=== PATIENT | female | born 1990 | race Caucasian/White ===

== ENCOUNTER 2024-01-09 12:55 | Inpatient (IN) | payer OTHER ==
[~2024-01-09] VITALS: Ht 157.5 cm; Wt 77.6 kg
[2024-01-09] MEDS ORDERED: MAGNESIUM SULFATE IN WATER 500 ML IV SCH (13:15)
[2024-01-09 13:20] VITALS: BP 110/73
[2024-01-09] MEDS ORDERED: PRENATAL TABLE1 EAC1 PO (13:43)
[2024-01-09] MEDS ORDERED: PROMETRIUM200 MG VAG (13:44)
[2024-01-09] MEDS ORDERED: CHILDREN'S ASPI81 MG PO (13:44)
[2024-01-09] MEDS ORDERED: TYLENOL325 MG PO (13:46)
[2024-01-09] MEDS ORDERED: RINGERS SOLUTION,LACTATED 1,000 ML IV SCH (14:00)
[2024-01-09] MEDS ORDERED: MAGNESIUM SULFATE IN WATER 100 ML IV NR (14:00)
[2024-01-09 14:14] LABS: HEMATOCRIT 34.7 % (36.0-45.00); HEMOGLOBIN 11.8 g/dL (12.0-15.00); MEAN CELL VOLUME 85.9 fL (80.00-100.00); MEAN CORPUSCULAR HEMOGLOBIN 29.1 pg (27.00-32.0); MEAN CORPUSCULAR HGB CONC 33.9 g/dl (32.0-36.0); PH,URINE 6.5 (5.0-8.0); PLATELET COUNT 398 K/uL (150-450); RED BLOOD COUNT 4.04 M/uL (4.00-6.00); RED CELL DISTRIBUTION WIDTH 13.1 % (11.5-14.5); URINE APPEARANCE Clear; URINE BILIRRUBIN Negative (NEGATIVE); URINE BLOOD Large; URINE COLOR Yellow; URINE GLUCOSE Negative (NEGATIVE); URINE KETONE Negative (NEGATIVE); URINE LEUKOCYTE Moderate; URINE NITRATE Negative; URINE PROTEIN Negative (NEGATIVE); URINE UROBILINOGEN 0.2 E.U./dl
[2024-01-09 14:18] LABS: URINE BACTERIA 114.6 uL (0.0-1933); URINE EPITHELIAL CELLS 6.9 uL (0.0-38.8); URINE WBC 37.3 uL (0.0-23.2)
[2024-01-09 14:47] LABS: BILIRUBIN TOTAL 0.24 mg/dL (0.3-1.2); CALCIUM 9.4 mg/dL (8.5-10.1); CREATININE SERUM 0.53 mg/dL (0.55-1.02); GFR 132.05; POTASSIUM 3.87 mEq/L (3.5-5.1)
[2024-01-09 14:52] LABS: INR 0.96; PARTIAL THROMBOPLASTIN TIME 28.8 SECONDS (22.0-34.0); PROTHROMBIN TIME 10.5 SECONDS (9.0-11.5)
[2024-01-09 15:20] VITALS: BP 108/73
[2024-01-09 19:45] VITALS: BP 107/72
[2024-01-09 23:39] VITALS: BP 100/64
[2024-01-10 04:37] VITALS: BP 100/66
[2024-01-10 07:27] VITALS: BP 102/65; O2SAT 98
[2024-01-10] MEDS ORDERED: POVIDONE-IODINE 118 ML BOTT TOP ONE (08:54)
[2024-01-10] MEDS ORDERED: METRONIDAZOLE/SODIUM CHLORIDE 100 ML IV SCH (09:39)
[2024-01-10] MEDS ORDERED: MAGNESIUM SULFATE IN WATER 0.04 GM/ML IV.SOLN IV ONE (11:22)
[2024-01-10 12:44] VITALS: BP 111/74; O2SAT 98
[2024-01-10 17:03] VITALS: BP 108/70
[2024-01-10] MEDS ORDERED: ACETAMINOPHEN 500 MG GEL..CAP PO PRN (22:00)
[2024-01-11 01:17] VITALS: BP 106/71
[2024-01-11 08:00] VITALS: BP 111/73
[2024-01-11 10:58] VITALS: BP 111/73
== END 2024-01-11 10:32 | disposition home or self-care (01) | DRG 819 ==
LOC: O/R 12:55 → LDR 12:55 → O/R 01-10 09:10 → OB/GYN 01-10 10:20
PROVIDERS: ADMIT Obstetrics & Gynecology Gynecology; ATTEND Obstetrics & Gynecology Gynecology
PROC: 4A1HXCZ Monitoring of Products of Conception, Cardiac Rate, External Approach (ICD-10-PCS; 2024-01-09)
PROC: 0UVC7ZZ Restriction of Cervix, Via Natural or Artificial Opening (ICD-10-PCS; principal; 2024-01-10 10:00)
DX: O34.32 Maternal care for cervical incompetence, second trimester (principal); Z3A.15 15 weeks gestation of pregnancy; Z37.0 Single live birth; Z20.822 Contact with and (suspected) exposure to COVID-19